=== PATIENT | female | born 1965 | race Caucasian/White ===

== ENCOUNTER 2016-10-15 21:37 | Emergency (ER) | payer MEDICAID ==
[~2016-10-15] VITALS: Ht 152.4 cm; Wt 105.6 kg
[~2016-10-15 21:37] MED LIST: ALBU6.7H INH; GLYB5TAB3 PO; IRON1TAB60 PO; METF10002 PO; PANT40TA3 PO
[2016-10-15] MEDS ORDERED: NITROGLYCERIN SINGLE TAB 0.4 MG SL PRN (23:30)
[2016-10-15] MEDS ORDERED: SODIUM CHLORIDE FLUSH 10ML SYR IVF ONE (23:30)
[2016-10-15] MEDS ORDERED: ASPIRIN 81 MG TABLET CHEW PO ONE (23:30)
[2016-10-15] MEDS ORDERED: ASPIRIN 81 MG TABLET CHEW ONE (23:35)
[2016-10-15] MEDS ORDERED: NITROGLYCERIN SINGLE TAB 0.4 MG SL ONE (23:35)
[2016-10-16] MEDS ORDERED: NITROGLYCERIN SINGLE TAB 0.4 MG SL ONE (00:29)
[2016-10-16 00:40] LABS: ASPARTATE AMINO TRANSFERASE 31 U/L (15-37); BLOOD UREA NITROGEN 8 mg/dL (7-18)
[2016-10-16 00:49] LABS: IS PT STATUS REG ER OR PRE ER? YES
[2016-10-16] MEDS ORDERED: MAALOX/HYOSCYAMINE/LIDOCAINE 45 ML BOTTLE PO ONE (01:30)
[2016-10-16] MEDS ORDERED: MAALOX/HYOSCYAMINE/LIDOCAINE 45 ML BOTTLE ONE (01:52)
[2016-10-16] MEDS ORDERED: LISINOPRIL 20 MG TABLET PO ONE (02:00)
[2016-10-16 02:24] VITALS: BP 152/89
== END 2016-10-16 02:25 | disposition home or self-care (01) ==
LOC: ED 23:59
DX: K21.9 Gastro-esophageal reflux disease without esophagitis (principal); R07.89 Other chest pain; E11.9 Type 2 diabetes mellitus without complications; J45.909 Unspecified asthma, uncomplicated; Z88.6 Allergy status to analgesic agent; F12.10 Cannabis abuse, uncomplicated
CPT/HCPCS: 36415; 71010; 80053; 84484; 85025; 93005

== ENCOUNTER 2016-10-16 16:33 | Emergency (ER) | payer MEDICAID ==
[~2016-10-16] VITALS: Ht 152.4 cm; Wt 104.0 kg
[2016-10-16 18:19] LABS: BLOOD UREA NITROGEN 8 mg/dL (7-18)
[2016-10-16 19:29] LABS: IS PT STATUS REG ER OR PRE ER? YES
[2016-10-16 21:16] VITALS: BP 147/99
== END 2016-10-16 21:18 | disposition home or self-care (01) ==
LOC: ED 21:12
DX: R51 Headache (principal); I10 Essential (primary) hypertension; E11.9 Type 2 diabetes mellitus without complications; K21.9 Gastro-esophageal reflux disease without esophagitis; J45.909 Unspecified asthma, uncomplicated; E78.00 Pure hypercholesterolemia, unspecified; F17.200 Nicotine dependence, unspecified, uncomplicated; F12.10 Cannabis abuse, uncomplicated; Z87.01 Personal history of pneumonia (recurrent)
CPT/HCPCS: 36415; 70450; 80048; 82040; 84484; 85025; 93005

== ENCOUNTER 2016-11-27 13:53 | Emergency (ER) | payer MEDICAID ==
[~2016-11-27] VITALS: Ht 152.4 cm; Wt 98.0 kg
[2016-11-27 13:55] VITALS: BP 119/86
== END 2016-11-27 14:03 | disposition left against medical advice (07) ==
LOC: ED 14:01
DX: I95.9 Hypotension, unspecified (principal); Z53.21 Procedure and treatment not carried out due to patient leaving prior to being seen by health care provider

== ENCOUNTER 2018-10-17 11:59 | Emergency (ER) | payer MEDICAID ==
[~2018-10-17] VITALS: Ht 152.4 cm; Wt 97.8 kg
[2018-10-17 12:18] VITALS: BP 138/83
[2018-10-17] MEDS ORDERED: ALBUTEROL/IPRATROPIUM 2.5MG/0.5MG, 3 ML ONE (12:44)
[2018-10-17] MEDS: ALBUTEROL/IPRATROPIUM 2.5MG/0.5MG, 3 ML NPPB SCH (12:46)
--- NOTE | 2018-10-17 12:47 | NUR ---
RT AT BS
== END 2018-10-17 13:50 | disposition home or self-care (01) ==
LOC: ED 12:37
DX: R05 Cough (principal); F17.210 Nicotine dependence, cigarettes, uncomplicated; K21.9 Gastro-esophageal reflux disease without esophagitis; E78.00 Pure hypercholesterolemia, unspecified; J45.909 Unspecified asthma, uncomplicated; E11.9 Type 2 diabetes mellitus without complications; I10 Essential (primary) hypertension
CPT/HCPCS: 71046; 94640; 99283; J7512; J7620

== ENCOUNTER 2019-01-21 20:16 | Emergency (ER) | payer MEDICAID ==
[~2019-01-21] VITALS: Ht 152.4 cm; Wt 99.7 kg
[2019-01-21 20:20] VITALS: BP 137/99
== END 2019-01-21 20:47 | disposition home or self-care (01) ==
LOC: ED 20:46
DX: M54.5 Low back pain (principal); E11.9 Type 2 diabetes mellitus without complications; I10 Essential (primary) hypertension; K21.9 Gastro-esophageal reflux disease without esophagitis; E78.00 Pure hypercholesterolemia, unspecified; J45.909 Unspecified asthma, uncomplicated; F17.210 Nicotine dependence, cigarettes, uncomplicated; M06.9 Rheumatoid arthritis, unspecified
CPT/HCPCS: 99283